=== PATIENT | male | born 1995 ===

== ENCOUNTER 2021-03-11 06:01 | Day surgery (SDC) | payer OTHER ==
[~2021-03-11 06:01] MED LIST: CATAFLAN
[2021-03-11] MEDS ORDERED: PERCOCET 5-3251 EACH PO (16:53)
[2021-03-11] MEDS ORDERED: DUI500 PO (16:53)
[2021-03-11] MEDS ORDERED: ALEVE220 M1 PO (16:53)
== END 2021-03-11 18:00 | disposition home or self-care (01) ==
LOC: CIR.AMB 06:01
PROVIDERS: ATTEND Orthopaedic Surgery
DX: S86.011A Strain of right Achilles tendon, initial encounter (principal); Z20.822 Contact with and (suspected) exposure to COVID-19